=== PATIENT | female | born 1985 | race Caucasian/White ===

== ENCOUNTER 2016-12-18 10:24 | Emergency (ER) | payer BC, OTHER ==
[~2016-12-18] VITALS: Wt 90.9 kg
[~2016-12-18 10:24] MED LIST: ONDA4TAB35 PO
[2016-12-18] MEDS ORDERED: SOD CHLORIDE 0.9% 500 ML IV STA (11:25)
--- NOTE | 2016-12-18 12:11 | ERD ---
ER Documentation Chief Complaint Date/Time DATE: 12/18/16 TIME: 12:08 Chief Complaint nausea vomiting and dizziness for the past few hours. no ap HPI 31-year-old female otherwise healthy comes to emergency room with vertiginous dizziness symptoms and nausea vomiting that started this morning when she woke up. Patient states that it was worse when she tried to sit up and when she tries to turn her head to the right as well. It is a sensation of the room spinning with her, and she reports nausea however no vomiting. She denies any head injury. No fevers, chills. ROS All systems reviewed and are negative except as per history of present illness. Medications Home Meds Active Scripts Cephalexin* (Keflex*) 500 Mg Capsule, 500 MG PO TID for 7 Days, CAP Prov:YARELY MUKHERJEE PA-C 12/18/16 Meclizine Hcl* (Antivert*) 12.5 Mg Tab, 12.5 MG PO Q6H Y for DIZZINESS, #20 TAB Prov:YARELY MUKHERJEE PA-C 12/18/16 Ondansetron Hcl* (Zofran* ODT) 4 mg -ODT Tab.disper, 4 MG PO Q6H Y for NAUSEA for 4 Days, TAB Prov:LUNA IBARRA PA-C 08/28/15 Allergies Allergies: Coded Allergies: No Known Allergy (Unverified , 08/27/15) PMhx/Soc History of Surgery: No Anesthesia Reaction: No Hx Neurological Disorder: No Hx Respiratory Disorders: No Hx Cardiac Disorders: No Hx Psychiatric Problems: No Hx Miscellaneous Medical Probl: No Hx Alcohol Use: No Hx Substance Use: No Hx Tobacco Use: No Physical Exam Vitals Vital Signs Date Time Temp Pulse Resp B/P Pulse Ox O2 Delivery O2 Flow Rate FiO2 12/18/16 10:44 98.8 96 21 131/81 97 Physical Exam General: Well-developed, well-nourished. The patient appears in no acute distress. HEENT: Head is normocephalic, atraumatic. No scleral icterus. Pupils are equal , round, and reactive. Oral mucous membranes are moist. No pharyngeal erythema. Neck: Supple. Nontender. Lungs: Clear to auscultation. Normal air movement. Heart: Regular rate and rhythm. S1 and S2 are normal. No murmurs, gallops, or rubs. Abdomen: Soft, nontender, nondistended. Bowel sounds are normoactive. Extremities: No clubbing or cyanosis. Normal pulses. Moving extremities x 4. No weakness. Neuro: M/S: Alert and oriented Face: EOMI, CN II-XII grossly intact Motor: Normal strength throughout Sensation: Normal sensation throughout Speech: Normal Cerebel: Normal coordination Normal gait Normal finger to nose DTR: 2+ and symmetric upper/lower extremities Skin: Normal turgor. No rash or lesions. Result Diagram: 12/18/16 1140 12/18/16 1140 Results 24 hrs Laboratory Tests Test 12/18/16 11:40 Anion Gap 16 Basophils # 0.010^3/ul Basophils % 0.3% Blood Morphology Comment Blood Urea Nitrogen 13mg/dl Calcium Level 9.2mg/dl Carbon Dioxide Level 26mmol/L Chloride Level 102mmol/L Creatinine 0.48mg/dl Eosinophils # 0.010^3/ul Eosinophils % 0.2% Glucose Level 106mg/dl Hematocrit 39.3% Hemoglobin 13.2g/dl Lymphocytes # 1.310^3/ul Lymphocytes % 22.4% Mean Corpuscular Hemoglobin 27.5pg Mean Corpuscular Hemoglobin Concent 33.6g/dl Mean Corpuscular Volume 81.8fl Mean Platelet Volume 8.5fl Monocytes # 0.310^3/ul Monocytes % 5.5% Neutrophils # 4.010^3/ul Neutrophils % 71.6% Nucleated Red Blood Cells # 0.010^3/ul Nucleated Red Blood Cells % 0.0/100WBC Platelet Count 87997^3/UL Potassium Level 4.2mmol/L Red Blood Count 4.8110^6/ul Red Cell Distribution Width 13.0% Sodium Level 140mmol/L Urine Bacteria FEW Urine Bilirubin NEGATIVE Urine Clarity CLEAR Urine Color LT. YELLOW Urine Glucose NEGATIVE% Urine Hemoglobin NEGATIVE Urine Ketones 40 Urine Leukocyte Esterase TRACE Urine Microscopic RBC NONE SEEN/HPF Urine Microscopic WBC 2-5/HPF Urine Nitrite NEGATIVE Urine Specific [place] 1.010 Urine Squamous Epithelial Cells MODERATE Urine Total Protein NEGATIVE Urine Urobilinogen 0.2 E.U./dL Urine pH 6.5 White Blood Count 5.610^3/ul Current Medications Medications (Trade) Dose Ordered Sig/Livia Route PRN Reason Start Time Stop Time Status Last Admin Dose Admin Sodium Chloride (NS) 500 ml @ 500 mls/hr Q1H STAT IV 12/18/16 11:25 12/18/16 12:24 DC 12/18/16 11:57 Meclizine HCl (Antivert) 12.5 mg ONCE ONCE PO 12/18/16 12:30 12/18/16 12:31 DC 12/18/16 12:08 Procedures/MDM 12-lead EKG(interpreted by supervising physician): Rate/Rhythm: Normal Sinus Rhythm, rate of 91 QRS, ST, T-waves: No changes consistent w/ acute ischemia, no intervals, no dysrhythmias, no ectopy Impression: No evidence of ischemia or arrhythmia ED course: I discussed with her that likely blood work and IV fluids will not change the diagnosis given that she has vertiginous symptoms, she is requesting IV fluids and blood work at this time. Patient had a line established, blood was obtained and urine. She was given a fluid bolus of normal saline, she was given meclizine 12.5 mg p.o. 31-year-old female comes in with acute onset of vertigo, patient's symptoms improved with meclizine. Her symptoms are very room spinning type sensation, and neurologic examination is intact. She is currently breast-feeding, she has been asked to pump and dump with the meclizine. Labs are unremarkable, no anemia, no electric abnormalities. Trace leukocyte esterase noted in the urine analysis in which she will be treated for UTI. I doubt acute coronary syndrome , she has no dysrhythmias. Patient will be discharged home and asked to orally hydrate. Departure Diagnosis: Primary Impression: Dizziness Additional Impression: UTI (urinary tract infection) Condition: YARELY Holden PA-C Dec 18, 2016 12:11
[2016-12-18 12:13] LABS: ADD UMIC YES; POTASSIUM 4.2 mmol/L (3.5-5.1); URINE BILIRUBIN (Dip) NEGATIVE (NEGATIVE); URINE BLOOD (Dip) NEGATIVE (NEGATIVE); URINE COLOR LT. YELLOW (YELLOW); URINE GLUCOSE (Dip) NEGATIVE (NEGATIVE); URINE KETONES (Dip) 40 (NEGATIVE); URINE LEUKOCYTE ESTERASE (Dip) TRACE (NEGATIVE); URINE NITRITE (Dip) NEGATIVE (NEGATIVE); URINE TOTAL PROTEIN (Dip) NEGATIVE (NEGATIVE); URINE UROBILINOGEN (Dip) 0.2 E.U./dL (0.1-1.0)
[2016-12-18 12:16] LABS: CREATININE 0.48 mg/dl (0.44-1.00)
[2016-12-18 12:17] LABS: CALCIUM 9.2 mg/dl (8.4-10.2)
[2016-12-18 12:28] LABS: BASOPHILS % 0.3 % (0.0-2.0); EOSINOPHILS % 0.2 % (0.0-7.0); HEMATOCRIT 39.3 % (37.0-47.0); HEMOGLOBIN 13.2 g/dl (12.0-16.0); LYMPHOCYTES # 1.3 10^3/ul (0.8-2.9); LYMPHOCYTES % 22.4 % (15.0-51.0); MEAN CORPUSCULAR HEMOGLOBIN 27.5 pg (29.0-33.0); MEAN CORPUSCULAR HGB CONC 33.6 g/dl (32.0-37.0); MEAN CORPUSCULAR VOLUME 81.8 fl (82.0-101.0); MEAN PLATELET VOLUME 8.5 fl (7.4-10.4); MONOCYTE # 0.3 10^3/ul (0.3-0.9); MONOCYTES % 5.5 % (0.0-11.0); NEUTROPHILS % 71.6 % (39.0-77.0); PLATELET COUNT 229 10^3/UL (140-440); RED BLOOD COUNT 4.81 10^6/ul (4.20-5.40); UNCORRECTED WBC 5.6 10^3/ul (4.8-10.8); WHITE BLOOD COUNT 5.6 10^3/ul (4.8-10.8)
[2016-12-18 12:30] LABS: CONDITION 1; LH ANALYZER COMMENTS 1
[2016-12-18] MEDS ORDERED: MECLIZINE 12.5 MG TAB PO ONE (12:30)
[2016-12-18 12:32] LABS: BACTERIA,URINE FEW; SQUAMOUS EPITHELIAL CELL,UR MODERATE; URINE RBCS NONE SEEN /HPF (0)
[2016-12-18] MEDS ORDERED: MECL12.574 PO (12:46)
[2016-12-18] MEDS ORDERED: CEPH-443 PO (12:46)
[2016-12-18 13:23] VITALS: BP 115/56; PULSE 77; RESP 18; TEMP 98.8
== END 2016-12-18 13:20 | disposition home or self-care (01) ==
LOC: FTE 10:24
DX: R42 Dizziness and giddiness (principal); N39.0 Urinary tract infection, site not specified
CPT/HCPCS: 36415; 80048; 81001; 85025; 93005; 99284; J7040; 81003

== ENCOUNTER 2017-07-05 23:13 | Emergency (ER) | payer OTHER ==
[~2017-07-05] VITALS: Ht 162.6 cm; Wt 98.0 kg
[~2017-07-05 23:13] MED LIST changes: +CEPH-443 PO; +MECL12.574 PO
[2017-07-05 23:23] VITALS: Ht 162.6 cm; Wt 98.0 kg
[2017-07-06] MEDS ORDERED: SOD CHLORIDE 0.9% 1,000 ML IV STA (01:17)
[2017-07-06] MEDS ORDERED: ONDANSETRON 4 MG INJ IV STA (01:17)
[2017-07-06 01:45] LABS: BASOPHILS % 0.2 % (0.0-2.0); EOSINOPHILS % 0.1 % (0.0-7.0); HEMATOCRIT 41.2 % (37.0-47.0); HEMOGLOBIN 13.4 g/dl (12.0-16.0); LYMPHOCYTES # 0.8 10^3/ul (0.8-2.9); LYMPHOCYTES % 9.5 % (15.0-51.0); MEAN CORPUSCULAR HEMOGLOBIN 27.2 pg (29.0-33.0); MEAN CORPUSCULAR HGB CONC 32.5 g/dl (32.0-37.0); MEAN CORPUSCULAR VOLUME 83.6 fl (82.0-101.0); MEAN PLATELET VOLUME 10.1 fl (7.4-10.4); MONOCYTE # 0.5 10^3/ul (0.3-0.9); MONOCYTES % 6.1 % (0.0-11.0); NEUTROPHILS % 83.7 % (39.0-77.0); PLATELET COUNT 200 10^3/UL (140-415); RED BLOOD COUNT 4.93 10^6/ul (4.20-5.40); RED CELL DISTRIBUTION WIDTH 12.8 % (11.5-14.5); WHITE BLOOD COUNT 8.2 10^3/ul (4.8-10.8)
[2017-07-06 02:03] LABS: ALBUMIN/GLOBULIN RATIO 1.05; BILIRUBIN,INDIRECT 0.2 mg/dl (0-1.1); BILIRUBIN,TOTAL 0.2 mg/dl (0.2-1.3); CREATININE 0.63 mg/dl (0.44-1.00); POTASSIUM 3.7 mmol/L (3.5-5.1); TOTAL PROTEIN 7.8 g/dl (6.1-8.1)
[2017-07-06] MEDS ORDERED: ONDA4TAB14 PO (02:18)
[2017-07-06] MEDS ORDERED: BISM262O23 PO (02:18)
--- NOTE | 2017-07-06 02:29 | ERD ---
ER Documentation Chief Complaint Date/Time DATE: 07/06/17 TIME: 02:26 Chief Complaint epigastric pain w/ N/V/D HPI This patient is a 32-year-old female presenting to the emergency department with complaints of nausea, vomiting, diarrhea ongoing intermittently since yesterday. Symptoms are improving slightly. The patient denies eating any unusual or new foods. Patient denies blood in the vomit or the diarrhea. There were approximately 6 episodes of diarrhea today, however she had no episodes of vomiting today. Additionally she reports she feels dehydrated and lightheaded slightly. She denies fevers, abdominal pain, chills, or other symptoms currently. ROS All systems reviewed and are negative except as per history of present illness. Medications Home Meds Active Scripts Bismuth Subsalicylate* (Pepto-Bismol*) 262 Mg/15 Ml Oral.susp, 15 ML PO Q3H Y for DIARRHEA, #120 ML Prov:KEVAN BROWN PA-C 07/06/17 Ondansetron (Ondansetron Odt) 4 Mg Tab.rapdis, 4 MG PO Q6H Y for NAUSEA AND/OR VOMITING, #10 TAB Prov:KEVAN BROWN PA-C 07/06/17 Cephalexin* (Keflex*) 500 Mg Capsule, 500 MG PO TID for 7 Days, CAP Prov:YARELY MUKHERJEE PA-C 12/18/16 Meclizine Hcl* (Antivert*) 12.5 Mg Tab, 12.5 MG PO Q6H Y for DIZZINESS, #20 TAB Prov:YARELY MUKHERJEE PA-C 12/18/16 Ondansetron Hcl* (Zofran* ODT) 4 mg -ODT Tab.disper, 4 MG PO Q6H Y for NAUSEA for 4 Days, TAB Prov:LNUA IBARRA PA-C 08/28/15 Allergies Allergies: Coded Allergies: No Known Allergy (Unverified , 08/27/15) PMhx/Soc History of Surgery: Yes ( X 1) Anesthesia Reaction: No Hx Neurological Disorder: No Hx Respiratory Disorders: No Hx Cardiac Disorders: No Hx Psychiatric Problems: No Hx Miscellaneous Medical Probl: No Hx Alcohol Use: No Hx Substance Use: No Hx Tobacco Use: No Smoking Status: Never smoker Physical Exam Vitals Vital Signs Date Time Temp Pulse Resp B/P Pulse Ox O2 Delivery O2 Flow Rate FiO2 07/05/17 23:23 98.4 101 20 121/76 98 Physical Exam Const: Nontoxic, well-appearing female in no acute distress. Head: Atraumatic Eyes: Normal Conjunctiva ENT: Normal External Ears, Nose and Mouth. Neck: Full range of motion..~ No meningismus. Resp: Clear to auscultation bilaterally Cardio: Regular rate and rhythm, no murmurs Abd: Soft, non tender, non distended. Normal bowel sounds Skin: No petechiae or rashes Back: No midline or flank tenderness Ext: No cyanosis, or edema Neur: Awake and alert Psych: Normal Mood and Affect Result Diagram: 07/06/1713107/06/17131 Results 24 hrs Laboratory Tests Test 07/06/17 01:32 White Blood Count 8.210^3/ul Red Blood Count 4.9310^6/ul Hemoglobin 13.4g/dl Hematocrit 41.2% Mean Corpuscular Volume 83.6fl Mean Corpuscular Hemoglobin 27.2pg Mean Corpuscular Hemoglobin Concent 32.5g/dl Red Cell Distribution Width 12.8% Platelet Count 57876^3/UL Mean Platelet Volume 10.1fl Neutrophils % 83.7% Lymphocytes % 9.5% Monocytes % 6.1% Eosinophils % 0.1% Basophils % 0.2% Nucleated Red Blood Cells % 0.0/100WBC Neutrophils # (Manual) 6.910^3/ul Lymphocytes # 0.810^3/ul Monocytes # 0.510^3/ul Eosinophils # 0.010^3/ul Basophils # 0.010^3/ul Nucleated Red Blood Cells # 0.010^3/ul Sodium Level 139mmol/L Potassium Level 3.7mmol/L Chloride Level 102mmol/L Carbon Dioxide Level 23mmol/L Anion Gap 18 Blood Urea Nitrogen 15mg/dl Creatinine 0.63mg/dl Glucose Level 116mg/dl Calcium Level 9.0mg/dl Total Bilirubin 0.2mg/dl Direct Bilirubin 0.00mg/dl Indirect Bilirubin 0.2mg/dl Aspartate Amino Transf (AST/SGOT) 21IU/L Alanine Aminotransferase (ALT/SGPT) 27IU/L Alkaline Phosphatase 73IU/L Total Protein 7.8g/dl Albumin 4.0g/dl Globulin 3.80g/dl Albumin/Globulin Ratio 1.05 Lipase 76U/L Current Medications Medications (Trade) Dose Ordered Sig/Livia Route PRN Reason Start Time Stop Time Status Last Admin Dose Admin Sodium Chloride (NS) 1,000 ml @ 1,000 mls/hr Q1H STAT IV 07/06/17 01:17 07/06/17 02:16 DC 07/06/17 01:32 Ondansetron HCl (Zofran Inj) 4 mg ONCE STAT IV 07/06/17 01:17 07/06/17 01:19 DC 07/06/17 01:32 Procedures/MDM 32-year-old female presents to the emergency department with complaints of nausea, vomiting, diarrhea. Abdominal examination was benign and the remainder of the physical examination shows no acute findings. The patient was slightly tachycardic at 101 bpm, which may be secondary to acute dehydration. The patient was given 1 L of IV fluids for rehydration and 4 mg of IV Zofran in the department and she was feeling significantly improved on reevaluation. CBC and chemistry panel were negative for any significant acute abnormalities. The patient was stable for discharge after treatment in the department with a prescription for Pepto-Bismol and Zofran. She is to return immediately for any new or worsening symptoms. I have low suspicion for acute abdomen, sepsis, or other emergent conditions. Close follow-up with the primary care physician was advised. Departure Diagnosis: Primary Impression: Nausea vomiting and diarrhea Condition: Fair Patient Instructions: Vomiting And Diarrhea, Nonspecific (Adult) Referrals: [facility] YOU HAVE RECEIVED A MEDICAL SCREENING EXAM AND THE RESULTS INDICATE THAT YOU DO NOT HAVE A CONDITION THAT REQUIRES URGENT TREATMENT IN THE EMERGENCY DEPARTMENT. FURTHER EVALUATION AND TREATMENT OF YOUR CONDITION CAN WAIT UNTIL YOU ARE SEEN IN YOUR DOCTORS OFFICE WITHIN THE NEXT 1-2 DAYS. IT IS YOUR RESPONSIBILITY TO MAKE AN APPOINTMENT FOR FOLOW-UP CARE. IF YOU HAVE A PRIMARY DOCTOR --you should call your primary doctor and schedule an appointment IF YOU DO NOT HAVE A PRIMARY DOCTOR YOU CAN CALL OUR PHYSICIAN REFERRAL HOTLINE AT IF YOU CAN NOT AFFORD TO SEE A PHYSICIAN YOU CAN CHOSE FROM THE FOLLOWING [facility] [address]. [facility] [address] [facility]. [facility] [address] [facility] [address] [facility] [address] [facility]. [facility] [address] Additional Instructions: Follow up with your PCP within the next 1-3 days for a repeat evaluation. If you require a referral to a specialist, your Primary Care Provider may be able to provide this for you. In most patient cases, a referral is not required. If you have further questions regarding this matter, please ask your Primary Care Provider. Return the the emergency department immediately if symptoms worsen or change. If you have any questions regarding medications, ask your pharmacist or us before you leave. If any adverse reactions, occur while taking your medications, discontinue the treatment and return to the emergency department immediately. If any new or worsening symptoms, uncontrolled fevers, or other unexplained symptoms occur, return to the emergency department immediately. Take your medications as directed, and complete the entire course of treatment. KEVAN BROWN PA-C Jul 06, 2017 02:23
[2017-07-06 02:40] VITALS: BP 109/54; PULSE 87; RESP 16
== END 2017-07-06 02:42 | disposition home or self-care (01) ==
LOC: FTE 23:13
DX: R11.2 Nausea with vomiting, unspecified (principal); R19.7 Diarrhea, unspecified
CPT/HCPCS: 80053; 83690; 85025; 96374; 99284; J2405; J7030